=== PATIENT | male | born 1955 | race Caucasian/White ===

== ENCOUNTER → 2019-10-12 | Outpatient (CLI) | payer BC ==
--- NOTE | 2019-10-13 03:25 | MR ---
EXAMINATION TYPE: MR knee RT wo con DATE OF EXAM: 10/12/2019 COMPARISON: 10/14/2011 HISTORY: Chronic rt knee pain; Prior MR on pacs 2010 TECHNIQUE: Multiplanar, multisequence imaging of the right knee is performed without IV contrast. FINDINGS: There is significant increased signal in the posterior cruciate ligament. There is apparent complete tear of the anterior cruciate ligament. There is moderate knee joint effusion. There is complex and o rbital cyst that measures 3.7 x 1.6 cm. There is moderate spurring at the patellofemoral joint. There is narrowing of the medial and lateral joint spaces. There is significant thinning and displacement of the entire medial meniscus. There is extensive increased signal in the anterior and posterior horn s of the medial meniscus at the free margins. There is thinning of the articular cartilage in the med ial and lateral joint space. There is irregular increased signal in the anterior horn lateral meniscu s. There is similar irregular increased signal in the posterior horn lateral meniscus extending to th e inferior surface. There is minimal lateral tibial subluxation. The collateral ligaments appear inta ct. There is significant osteophyte formation and spurring involving the medial and lateral femoral a nd tibial condyles. IMPRESSION: There is complete tear anterior and posterior cruciate ligaments. Extensive osteoarthritis with joint space narrowing and spur formation. Extensive tears and degenerat keny changes in the medial and lateral menisci. Knee joint effusion with complex popliteal cyst that could relate to debris and/or developing synovia l chondromatosis.
== END | disposition home or self-care (01) ==
LOC: RADMRIMAIN 19:17
PROVIDERS: ATTEND Orthopaedic Surgery
DX: M17.11 Unilateral primary osteoarthritis, right knee (principal); S83.511A Sprain of anterior cruciate ligament of right knee, initial encounter; S83.521A Sprain of posterior cruciate ligament of right knee, initial encounter; M25.861 Other specified joint disorders, right knee; S83.281A Other tear of lateral meniscus, current injury, right knee, initial encounter; S83.241A Other tear of medial meniscus, current injury, right knee, initial encounter; M71.21 Synovial cyst of popliteal space [Baker], right knee

== ENCOUNTER → 2019-10-19 | Outpatient (CLI) | payer BC | END | disposition home or self-care (01) | LOC: LABWHC1 15:03 | PROVIDERS: ATTEND Orthopaedic Surgery | DX: Z01.812 Encounter for preprocedural laboratory examination (principal) | CPT/HCPCS: 87070 ==

== ENCOUNTER → 2019-11-07 | Outpatient (CLI) | payer BC ==
--- NOTE | 2019-11-07 22:45 | MR ---
EXAMINATION TYPE: MR knee LT wo con DATE OF EXAM: 11/07/2019 COMPARISON: NONE HISTORY: Left knee pain, however pain for 3 months per patient. TECHNIQUE: Multiplanar, multisequence images of the knee is performed without IV contrast. FINDINGS: MEDIAL MENISCUS: Medial meniscus is abnormal with truncated appearance and abnormal signal, findings most prominent involving the posterior horn. Displaced medial fragment fell present on coronal images LATERAL MENISCUS: Abnormal signal through anterior and posterior horn including central body is ident ified predominantly horizontal component extends to the peripheral surface of the anterior horn. CRUCIATE LIGAMENTS: The anterior and posterior cruciate ligaments are intact and unremarkable. COLLATERAL LIGAMENTS: The medial collateral ligament and lateral collateral ligament complex are inta ct. Mass effect with medial protrusion of the medial collateral ligament noted. EXTENSOR MECHANISM: Visualized quadriceps and patellar tendons are intact. EFFUSION: Moderate size suprapatellar joint effusion. POPLITEAL CYST: Large multi septated popliteal/redding cyst measuring over 10 cm long axis sagittal keri ge 25. TRICOMPARTMENT SPACES: Moderate tricompartment joint space loss with mild to moderate tricompartment spurring CARTILAGE: Some chondromalacia patella with thinning of articular cartilage along posterior patellar pole particularly superiorly. Full-thickness cartilaginous loss medial tibial femoral compartment is present. BONE MARROW SIGNAL: Areas of reactive diminished T1 and slight T2 hyperintense signal medial tibial f emoral compartment at site of full-thickness cartilaginous loss. OTHER: No additional significant abnormality is appreciated. IMPRESSION: 1. Moderate to advanced degenerative changes most prominent medial tibial femoral compartment as deta iled above. 2. Full-thickness tear involving anterior and posterior horns of medial meniscus most prominent throu gh the posterior horn. 3. At least intrasubstance suspected full-thickness tear involving anterior and posterior horn of lat eral meniscus. 4. Large multiseptated popliteal cyst. 5. Moderate-sized suprapatellar joint effusion.
== END | disposition home or self-care (01) ==
LOC: RADMRIMAIN 18:49
PROVIDERS: ATTEND Orthopaedic Surgery
DX: M17.12 Unilateral primary osteoarthritis, left knee (principal); S83.232A Complex tear of medial meniscus, current injury, left knee, initial encounter

== ENCOUNTER 2019-11-28 05:57 | Day surgery (SDC) | payer BC ==
[2019-11-24 10:58] VITALS: BMI 38.0
--- NOTE | 2019-11-27 11:17 | HP ---
HISTORY AND PHYSICAL DATE OF SURGERY: 11/28/2019 Sergio Ramsey is a 64-year-old patient seen with symptomatic right knee osteoarthritis. We discussed options for treatment. He elected to proceed with right total knee arthroplasty. Consent was obtained. Medical clearance was provided by Dr. Luis Garnica. PAST MEDICAL HISTORY: Hypertension. PAST SURGICAL HISTORY: Right knee arthroscopy. DAILY MEDICATIONS: Antihypertensive. ALLERGIES: None. SOCIAL HISTORY: Denies tobacco use. PHYSICAL EXAMINATION: Evaluation of the right knee: His range of motion is 0-130. There is a mild to moderate effusion. Tenderness along the medial joint line. Crepitus along the medial patellofemoral compartments on range of motion. Pain with patellofemoral compression. Ligaments are stable. Hip rotation is without pain. Distal neurovascular exam is intact. Right knee radiographs reveal severe medial moderate patellofemoral compartment osteoarthritis. IMPRESSION: 1. Right knee osteoarthritis. 2. Hypertension. PLAN: Right total knee arthroplasty. MMODL / IJN: [id number] /
[~2019-11-28 05:57] MED LIST: ACETAMINOPHEN TAB 500 MG TAB PO ONE; DEXAMETHASONE SOD PHOSPHATE 10 MG/ML 1 ML VIAL IV ONE; LIDOCAINE 1% 20 ML VIAL (10MG/ML) FOR IV START INTRADERMA PRN; MELOXICAM 7.5 MG TAB PO ONE; MIDAZOLAM 2 MG/2 ML VIAL IV PRN; TRANEXAMIC ACID 1,000 MG in SODIUM CHLORIDE 0.9% 100 ML IVPB ONE; ceFAZolin 3 GM in SODIUM CHLORIDE 0.9% 100 ML IVPB ONE; fentaNYL (PF) 50 MCG/ML 2 ML AMP IV PRN; fentaNYL (PF) 50 MCG/ML 2 ML AMP IVP PRN
[2019-11-28] MEDS: LACTATED RINGERS 1,000 ML IV SCH ×5 (06:26→20:37)
[2019-11-28] MEDS ORDERED: DEXAMETHASONE SOD PHOSPHATE 10 MG/ML 1 ML VIAL IV ONE (06:32)
[2019-11-28] MEDS ORDERED: ONDANSETRON 4 MG/2 ML VIAL IVP ONE (06:32)
[2019-11-28] MEDS ORDERED: ROPIVACAINE 0.2%-NS ON-Q PUMP 1,090 MG, EMPTY PAIN BALL 1 EACH MISCELLANE PRN (06:58)
--- NOTE | 2019-11-28 07:01 | P.ANPRN ---
Procedure Note - Anesthesia - Nerve Block Performed Right Adductor Canal Infusion Time Out Performed: Yes Date of Procedure: 11/28/19 Procedure Start Time: 06:40 Procedure Stop Time: 06:50 Location of Patient: PreOp Indication: Acute Post-Operative Pain, Requested by Surgeon Specifically requested for management of pain by DrAshlyn: Figueroa Anaya Sedation Type: Sedate with meaningful contact maintained Preparation: Sterile Prep Position: Supine Catheter Depth at Skin (cm): 8 Catheter: Indwelling Needle Types: Pajunk Needle Gauge: 18 Ultrasound used to visualize needle placement: Yes Ultrasound used to observe medication spread: Yes Injectate: 0.5% Ropivacaine (see comment for volume) (20 cc) Blood Aspirated: No Pain Paresthesia on Injection Noted: No Resistance on Injection: Normal Image Stored and Saved: Yes Events: Uneventful and Well Tolerated
[2019-11-28] MEDS ORDERED: TRANEXAMIC ACID 1,000 MG/10 ML VIAL ONE (07:27)
[2019-11-28] MEDS ORDERED: SODIUM CHLORIDE 0.9% 100 ML BAG ONE (07:27)
[2019-11-28] MEDS ORDERED: PROPOFOL 10 MG/ML 20 ML VIAL IV ONE (07:27)
[2019-11-28] MEDS ORDERED: ceFAZolin 3,000 MG in SODIUM CHLORIDE 0.9% IRRIGATIO 3,000 ML IRRIGATION ONE (07:27)
[2019-11-28] MEDS ORDERED: MIDAZOLAM 2 MG/2 ML VIAL ONE (07:27)
[2019-11-28] MEDS: ROPIVACAINE 246.25 MG, EPINEPHrine 0.5 MG, KETOROLAC 30 MG, cloNIDine HCL/PF 80 MCG, WA... MISCELLANE ONE ×10 (07:55→08:27)
[2019-11-28] MEDS ORDERED: LACTATED RINGERS 1,000 ML IV ONE (09:00)
[2019-11-28] MEDS ORDERED: NALOXONE 0.4 MG/ML 1 ML VIAL IV PRN (09:15)
[2019-11-28] MEDS ORDERED: ONDANSETRON 4 MG/2 ML VIAL IVP PRN (09:15)
[2019-11-28] MEDS ORDERED: HYDROcodone/APAP 5-325MG 1 EACH TAB PO PRN (09:15)
[2019-11-28] MEDS ORDERED: HYDROmorphone 0.5 MG/0.5 ML SYRINGE IVP PRN ×2 (09:15)
[2019-11-28] MEDS ORDERED: traMADol 50 MG TAB PO PRN (09:15)
[2019-11-28] MEDS ORDERED: HYDROmorphone 1 MG/ML 1 ML SYRINGE IVP PRN (09:15)
--- NOTE | 2019-11-28 09:15 | P.OP ---
Date of Procedure: 11/28/19 Preoperative Diagnosis: Right knee osteoarthritis Postoperative Diagnosis: Right knee osteoarthritis Procedure(s) Performed: Right total knee arthroplasty Implants: 1. Depuy attune size 8 right cruciate retaining cemented femur 2. Depuy attune size 8 fixed bearing cemented tibial baseplate 3. Depuy attune size 8 fixed bearing 5 mm polyethylene tibial insert 4. Depuy attune 41 mm all polyethylene cemented patella Anesthesia: regional (Adductor canal catheter), local, spinal Surgeon: Figueroa Anaya Shoelace Tipping Machine Operator #1: Flip Thorne Estimated Blood Loss (ml): 35 Pathology: other (Bone) Condition: stable Disposition: PACU Indications for Procedure: 64-year-old patient seen with symptomatic right knee osteoarthritis. After treatment options were discussed, he elected to proceed with total knee arthroplasty. Operative Findings: See description of procedure Description of Procedure: Patient was taken to the operative suite after having an adductor canal catheter placed by the department of anesthesia for postoperative pain management. Patient underwent a spinal anesthetic by the department of anesthesia. Patient was given preoperative IV intake antibiotics and TXA. A well-padded tourniquet was placed about the right lower extremity. The lower extremity was then prepped and draped in the normal sterile orthopedic fashion. The extremity was elevated, a tourniquet was insufflated to 300. A standard anterior incision was made sharply through skin. Dissection was taken down through the subcutaneous soft tissues down to the extensor mechanism. A medial arthrotomy was performed, patella was everted and knee was flexed. There was advanced osteoarthritis noted. I introduced my distal intramedullary femoral drill. I then introduced the distal femoral cutting jig. Dev RIVAS secured the cutting jig with 2 pins. I held retractors in position while Dev RIVAS performed the distal femoral resection through the guide area we now removed her distal femoral cutting guide. We now placed our 4-in-1 femoral cutting block and positioned and it was secured with 2 pins by Dev RIVAS while I held the block in position. The distal femoral finishing was now completed. A proximal tibial cutting guide was positioned. I held the guide in the appropriate position with both hands well Dev RIVAS inserted stabilizing pins into the guide. Proximal tibial cut was made. We now placed a trial femoral component into position, along with an appropriate size tibial tray and insert. We now took the knee through range of motion and had full extension good flexion and good overall soft tissue balance noted. The patella was everted and stabilized with 2 towel clips held by Dev RIVAS while I performed a flush with patellar quad tendon utilizing a fresh sawblade. We templated the patella, appropriate drill holes were made. An appropriate trial patella was positioned, knee was taken through full range of motion with the patella tracking very nicely. The trial patella was removed. Drill holes were made through the femoral component. All trial components were removed after marking off the appropriate rotation of the tibia. Retractors were now positioned along the proximal tibia. An appropriate keel punch was made with the appropriate size tibial guide by myself on Dev RIVAS assisted by holding retractors. At this point appropriate size implants were chosen and opened. The joint was irrigated copiously with pulse lavage mechanical irrigation. The posterior capsule was infiltrated with local analgesic. The wound was irrigated with pulse lavage mechanical irrigation. We mixed antibiotic methylmethacrylate. We placed the knee into flexion. We placed multiple retractors assisted by Dev RIVAS to expose the proximal tibia. Once the methyl methacrylate was ready, the tibial component was cemented into place removing any excess methylmethacrylate form by both myself and Dev RIVAS. The femoral component was cemented into place removing the removing any excess methylmethacrylate performed by both myself and Dev RIVAS. We then inserted the appropriate size polyethylene tibial insert. We made sure that it was locked into position. We took the knee into full extension, and then back in a flexion making sure we had removed any excess methylmethacrylate. The patellar component was then cemented down and secured with clamp. Excess methylmethacrylate removed. We kept the knee in full extension, patellar clamp in position until methylmethacrylate had hardened. Once it had hardened the patellar clamp was removed. The knee was taken through full range of motion. The patella tracked nicely. There was good soft tissue balancing. The tourniquet was now released. Additional hemostasis was achieved via electrocautery. A second gram of TXA was given. The wound again was irrigated with pulse lavage mechanical irrigation. The superficial soft tissues were infiltrated local analgesic. The extensor mechanism was repaired with Vicryl. We checked the repair with range of motion and it was stable. The subcutaneous soft tissues were repaired with Vicryl in layers. The skin was approximated with pernio/Dermabond. Sterile dressings were applied followed by loose web roll and Chidi bandage. The patient was transferred to a bed, and taken to recovery in stable and satisfactory condition. Dev RIVAS assisted with this complex procedure.
--- NOTE | 2019-11-28 10:13 | XR ---
EXAMINATION TYPE: XR knee limited RT DATE OF EXAM: 11/28/2019 COMPARISON: NONE HISTORY: 64-year-old male evaluation for postoperative abnormality and alignment TECHNIQUE: 2 views FINDINGS: Images show placement of right total knee arthroplasty. Both distal femoral and proximal ti bial components of the prosthesis are well seated without periprosthetic fracture. Alignment grossly anatomic. Extensor mechanism intact. Anterior soft tissue swelling with soft tissue air as well as in tra-articular air compatible with recent operation. IMPRESSION: Uncomplicated postoperative appearance right total knee arthroplasty.
[2019-11-28] MEDS: HYDROcodone/APAP 5-325MG 1 EACH TAB PO PRN ×2 (14:41→21:43)
[2019-11-28] MEDS: ceFAZolin 3 GM in SODIUM CHLORIDE 0.9% 100 ML IVPB SCH (14:42)
[2019-11-28] MEDS: amLODIPine 5 MG TAB PO SCH (20:38)
[2019-11-28] MEDS: ENOXAPARIN 30 MG/0.3 ML SYRINGE SQ SCH (20:38)
[2019-11-28] MEDS ORDERED: SENNOSIDES-DOCUSATE SODIUM 1 EACH TAB PO SCH (21:00)
[2019-11-28] MEDS ORDERED: CALCIUM CARBONATE 500 MG CHEWABLE PO PRN (22:32)
[2019-11-29] MEDS: ceFAZolin 3 GM in SODIUM CHLORIDE 0.9% 100 ML IVPB SCH (00:16)
[2019-11-29] MEDS: HYDROcodone/APAP 5-325MG 1 EACH TAB PO PRN (04:46)
[2019-11-29] MEDS: LACTATED RINGERS 1,000 ML IV SCH (05:55)
[2019-11-29 07:52] VITALS: BP 150/86; PULSE 78; RESP 16; TEMP 98.4
[2019-11-29 07:53] LABS: Basophils # (A) 0.1 k/uL (0-0.2); Basophils % (A) 1 %; Eosinophils % (A) 0 %; HCT 34.5 % (39.0-53.0); HGB 11.6 gm/dL (13.0-17.5); Lymphocytes # (A) 1.3 k/uL (1.0-4.8); Lymphocytes % (A) 12 %; MCHC 33.8 g/dL (31.0-37.0); MCV 91.9 fL (80.0-100.0); Mean Platelet Volume 7.6; Monocytes % (A) 10 %; Neutrophils % (A) 76 %; Platelet Count 215 k/uL (150-450); RBC 3.75 m/uL (4.30-5.90); RDW 11.8 % (11.5-15.5); WBC 10.5 k/uL (3.8-10.6)
--- NOTE | 2019-11-29 08:06 | P.PN ---
Progress Note - Text Anesthesia POD 1 724. Patient is status post right TKR under spinal anesthesia with a right adductor canal catheter placed for postoperative pain relief. With ropivacaine 0.2% running at 8 cc's per hour, the patient's VAS is (0, 2). Catheter site is clean dry and intact.
[2019-11-29] MEDS: amLODIPine 5 MG TAB PO SCH (08:23)
[2019-11-29] MEDS: ENOXAPARIN 30 MG/0.3 ML SYRINGE SQ SCH (08:24)
[2019-11-29] MEDS ORDERED: MELOXICAM 7.5 MG TAB PO SCH (09:00)
[2019-11-29] MEDS ORDERED: PANTOPRAZOLE 40 MG/10 ML VIAL IVP SCH (10:30)
--- NOTE | 2019-11-29 12:47 | P.PN ---
Subjective Progress Note Date: 11/29/19 Principal diagnosis: s/p right tka Patient evaluated at bedside, he is resting comfortably. Pain is well- controlled. He has done well with physical therapy Denies any chest pain or shortness of breath. Patient is requesting a hospital bed along with a elevated toilet seat due to his low toilets and bedroom being up a flight of stairs, a prescription was placed for this. Objective - Vital Signs Vital signs: Vital Signs Temp 98.4 F 11/29/19 07:10 Pulse 78 11/29/19 07:10 Resp 16 11/29/19 07:10 BP 150/86 11/29/19 07:10 Pulse Ox 97 11/29/19 07:10 Intake & Output 11/28/19 11/29/19 11/29/19 18:59 06:59 18:59 Intake Total 1697 Output Total 35 Balance 1662 Weight 131 kg Intake: IV 1401 Oral 296 Output: Estimated Blood Loss 35 Other: Voiding Method Toilet # Voids 2 1 - Exam Right lower extremity: Incision is clean, dry, and intact. The exofin fusion tape is in good condition. There is minimal soft tissue swelling and ecchymosis surrounding the medial and lateral aspects of the incision. Calf is soft, no tenderness with palpation. Plantar flexion, dorsiflexion, EHL, FHL are intact. Sensory exam to light touch throughout the extremity is intact, dorsal pedis pulses 2+. - Labs CBC & Chem 7: 11/29/19 07:01 Labs: Abnormal Lab Results - Last 24 Hours (Table) 11/29/19 Range/Units 07:01 RBC 3.75 L (4.30-5.90) m/uL Hgb 11.6 L (13.0-17.5) gm/dL Hct 34.5 L (39.0-53.0) % Neutrophils # 8.0 H (1.3-7.7) k/uL Assessment and Plan Plan: Assessment: Postop day #1 status post right total knee arthroplasty Plan: Pain control, discharged on oral medication GI and DVT prophylaxis, aspirin 81 mg twice a day of discharge Wound care instructions discussed Icing and elevating techniques discussed Therapy and nursing after discharge Plan for discharge home today Time with Patient: Less than 30
--- NOTE | 2019-11-29 12:51 | P.DS ---
Providers Date of admission: 11/28/2019 Expected date of discharge: 11/29/19 Attending physician: Figueroa Man Consults: 11/28/19 09:15 Consult Physician Routine Consulting Provider: Luis Garnica Reason/Comments: Medical management Do you want consulting provider notified?: Yes Primary care physician: Luis Garnica [facility] Course: Date of admission: 11/28/2019 Date of discharge: 11/29/2019 Admission diagnosis: Status post right total knee arthroplasty Discharge diagnosis: Same Attending physician: Dr. man Surgical procedures: Right total knee arthroplasty Brief history: Patient is a 64-year-old male with a history of progressive primary right knee osteoarthritis. At this point patient has failed conservative treatment measures and has opted to proceed with a elective right total knee arthroplasty. Hospital course: Details of patient's surgery can be found in operative report. Patient tolerated the procedure well and was subsequently transported to orthopedic floor. Patient's orthopeidc and medical care was provided daily. Patient had daily laboratory tests performed for evaluation of overall blood counts. Patient had daily physical therapy to include strengthening range of motion as well as education with walker ambulation. Patient had daily CPM usage as part of their physical therapy program. Patient was treated with Lovenox for their postoperative DVT prophylaxis during their inpatient stay. Patient was noted to have a relatively uneventful postoperative course. Patient reported satisfactory pain control with oral pain medications by postoperative day 0. Patient showed satisfactory progress with physical therapy. Patient moved steadily through the program and had no difficulty meeting the goals by postoperative day 1. Given patient's otherwise satisfactory course and having met physical therapy goals, plan is to discharge patient home on postoperative day 1. Discharge condition/disposition: Patient will be discharged home in stable condition. Discharge medications: Instructions are given on resumption of patient's normal daily medications per primary care recommendation, in addition patient will be prescribed [place] 7.5 mg/325 mg, tramadol 50 mg, Colace 100 mg, aspirin 81 mg. Discharge instructions: 1. Wound care and infection precautions, keep incision dry and covered while showering, no lotions, creams, moisturizers. No soaking, tubs, pools, hottubs. Do not scrub over the incision. 2. Weight-bear as tolerated with walker / cane until follow-up. 3. Ice and elevate when necessary. Do not exceed 20 minutes per hour with ice pack. 4. Utilize compression sleeve until seen at first follow up appointment. 5. Visiting nursing care. 6. Home physical therapy including home CPM. 7. Pain meds and anticoagulants per prescription. 8. Pain medication has potential to cause constipation. Increase oral fluid and fiber intake. Contact primary care provider if you have not had a bowel movement within 48 hours after discharge 9. No anti-inflammatory medication until discussed at first post operative visit, this including Motrin, Aleve, Mobic, Diclofenac. 10. Follow up in office at 2 weeks postop with Dev Thorne PA-C 11. Follow up with your primary care doctor 7-10 days after discharge. 12. Contact [facility] with any questions, . Procedures: right total knee arthroplasty Patient Condition at Discharge: Good Plan - Discharge Summary Discharge Rx Participant: Yes New Discharge Prescriptions: New Aspirin [Adult Low Dose Aspirin EC] 81 mg PO BID #60 tablet. Docjavedte [Colace] 100 mg PO DAILY #30 capsule HYDROcodone/APAP 7.5-325MG [[place] 7.5] 1 - 2 each PO Q6HR PRN #56 tab PRN Reason: Pain traMADol HCl [Ultram] 50 mg PO Q6H PRN #28 tab PRN Reason: Pain No Action amLODIPine [Norvasc] 5 mg PO QAM Ibuprofen [Motrin] 800 mg PO Q6H PRN PRN Reason: Pain Acetaminophen [Tylenol Extra Strength] 1,000 mg PO ONCE Discharge Medication List Ibuprofen [Motrin] 800 mg PO Q6H PRN 11/24/19 [History] amLODIPine [Norvasc] 5 mg PO QAM 11/24/19 [History] Acetaminophen [Tylenol Extra Strength] 1,000 mg PO ONCE 11/28/19 [History] Aspirin [Adult Low Dose Aspirin EC] 81 mg PO BID #60 tablet. 11/29/19 [Rx] Docusate [Colace] 100 mg PO DAILY #30 capsule 11/29/19 [Rx] HYDROcodone/APAP 7.5-325MG [[place] 7.5] 1 - 2 each PO Q6HR PRN #56 tab 11/29/19 [Rx] traMADol HCl [Ultram] 50 mg PO Q6H PRN #28 tab 11/29/19 [Rx] Follow up Appointment(s)/Referral(s): Luis Garnica DO [Primary Care Provider] - 1 Week [facility],Equipment [NON-STAFF] - [facility], [NON-STAFF] - Flip Thorne PAC [PHYSICIAN FEEDER ASSOCIATE] - 12/14/19 2:10 pm Activity/Diet/Wound Care/Special Instructions: *Please call [facility] once home to arrange delivery of Continuous Passive Motion (CPM) machine, hospital bed, and toilet raiser - [phone] Orthopedic Discharge Instructions: 1. Wound care and infection precautions, keep incision dry and covered while showering, no lotions, creams, moisturizers. No soaking, pools, hot tubs. Do not scrub over incision. 2. Weight-bear as tolerated with walker / cane until follow-up. 3. Ice and elevate when necessary. Do not exceed 20 minutes per hour with ice pack. 4. Utilize compression sleeve until seen at first follow up appointment. 5. Pain meds and anticoagulants per prescription. 6. Pain medication has potential to cause constipation. Increase oral fluid and fiber intake. Contact primary care provider if you have not had a bowel movement within 48 hours after discharge. 7. No anti-inflammatory medication until discussed at first post operative visit, this including Motrin, Aleve, Mobic, Diclofenac. 8. Follow up in office at 2 weeks postop with Dev Thorne PA-C 9. Follow up with your primary care doctor 7-10 days after discharge. 10. Contact [facility] with any questions, . Discharge Disposition: HOME WITH HOME HEALTH SERVICES
--- NOTE | 2019-11-29 16:36 | P.CONS ---
History of Present Illness - Reason for Consult Consult date: 11/29/19 Medical management hypertension Requesting physician: Figueroa Anaya - Chief Complaint Progressive right knee osteoarthritis - History of Present Illness This is a pleasant 64-year-old gentleman with history of progressive right knee osteoarthritis, hypertension, obesity. Status post elective right total knee arthroplasty, failed conservative management. Tolerated procedure well. Ambulating, tolerating exertion well. Denies lightheadedness, dizziness or focal deficits. Good diet intake with no nausea or vomiting, passing flatus. Systolic blood pressures 150s and 60s and Norvasc added to med regime. Denies chest pain, palpitations or shortness of breath. Afebrile, normal WBC. Hemoglobin 11.6. Review of Systems Constitutional: Denied any fatigue denied any fever. Cardio vascular: denied any chest pain, palpitations Gastrointestinal denied any nausea vomiting Pulmonary: Denied any shortness of breath cough Neurologic denied any new focal deficits ROS Statement: Those systems with pertinent positive or pertinent negative responses have been documented in the HPI. ROS Other: All systems not noted in ROS Statement are negative. Past Medical History Past Medical History: Hypertension History of Any Multi-Drug Resistant Organisms: None Reported Past Surgical History: Appendectomy, Orthopedic Surgery, Tonsillectomy Additional Past Surgical History / Comment(s): rt knee scope x2 Past Anesthesia/Blood Transfusion Reactions: No Reported Reaction Past Psychological History: No Psychological Hx Reported Smoking Status: Never smoker Past Alcohol Use History: Rare Past Drug Use History: None Reported Medications and Allergies Home Medications Medication Instructions Recorded Confirmed Type Ibuprofen [Motrin] 800 mg PO Q6H PRN 11/24/19 11/28/19 History amLODIPine [Norvasc] 5 mg PO QAM 11/24/19 11/28/19 History Acetaminophen [Tylenol Extra 1,000 mg PO ONCE 11/28/19 11/28/19 History Strength] Aspirin [Adult Low Dose Aspirin EC] 81 mg PO BID #60 tablet. 11/29/19 Rx Docusate [Colace] 100 mg PO DAILY #30 capsule 11/29/19 Rx HYDROcodone/APAP 7.5-325MG [[place] 1 - 2 each PO Q6HR PRN #56 tab 11/29/19 Rx 7.5] traMADol HCl [Ultram] 50 mg PO Q6H PRN #28 tab 11/29/19 Rx Allergies Allergy/AdvReac Type Severity Reaction Status Date / Time No Known Allergies Allergy Verified 11/24/19 10:53 Physical Exam Vitals: Vital Signs Temp Pulse Pulse Resp BP Pulse Ox 11/29/19 07:10 98.4 F 78 16 150/86 97 11/29/19 02:39 97.7 F 81 18 134/67 97 11/28/19 19:33 16 11/28/19 18:32 97.8 F 80 16 142/79 93 L 11/28/19 14:16 98 F 82 16 133/79 93 L 11/28/19 12:45 87 146/78 11/28/19 12:30 77 148/80 11/28/19 12:15 81 151/81 11/28/19 12:00 81 146/84 11/28/19 11:45 76 139/78 11/28/19 11:30 84 156/83 11/28/19 11:15 82 164/82 11/28/19 11:00 81 157/79 11/28/19 10:45 81 159/87 11/28/19 10:30 97.6 F 87 16 166/78 92 L Intake and Output 11/28/19 11/29/19 11/29/19 22:59 06:59 14:59 Intake Total 296 Balance 296 Intake: Oral 296 Other: Voiding Method Toilet # Voids 2 1 PHYSICAL EXAM: VITAL SIGNS: [As above] GENERAL: Sitting up in bed, no acute distress HEENT: Conjunctivae normal. eyes normal. Oral mucosa moist NECK: No JVD. No thyroid enlargement. No LNs CARDIOVASCULAR: S1, S2 regular. No murmur RESPIRATION: Breath sounds diminished in the bases. No rhonchi or crackles. No bronchial breathing. ABDOMEN: Soft, nontender, nondistended .no masses palpable. No guarding.Bowel sounds heard. LEGS: Minimal edema/ecchymosis. Dressing clean dry and intact. +2 DP PSYCHIATRY: Alert and oriented X3, mood and affect normal. NERVOUS SYSTEM: Cranial N 2-12 grossly normal. Moves all 4 limbs.No focal deficits. Strength and sensation grossly intact.. Skin: no rash Results CBC & Chem 7: 11/29/19 07:01 Labs: Abnormal Lab Results - Last 24 Hours (Table) 11/29/19 Range/Units 07:01 RBC 3.75 L (4.30-5.90) m/uL Hgb 11.6 L (13.0-17.5) gm/dL Hct 34.5 L (39.0-53.0) % Neutrophils # 8.0 H (1.3-7.7) k/uL Assessment and Plan Assessment: Right total knee arthroplasty secondary to progressive primary right knee osteoarthritis, failed conservative treatment. Hypertension Obesity Plan: Continue on current medication regime ,monitoring and symptomatic treatment. PT. Pain management/DVT prophylaxis as per surgery. Aggressive pulmonary toileting with incentive spirometer reinforced. Close monitoring of blood pressure, Norvasc added to med regimen. Discharge planning in progress for today as per orthopedic surgery. Follow up with Dr. Garnica in 1 week. Thank you for allowing us to participate in the care of this pleasant gentleman. The impression and plan of care has been dictated as directed. : I performed a history and examination of this patient, discussed the same with the dictator. I agree with the dictator's note ,documented as a scribe. Any additional findings or plans will be noted.
== END 2019-11-29 14:37 | disposition home health service (06) ==
LOC: OR 05:57 → 4SSUR 09:04 → OR 11-29 14:37
PROVIDERS: ATTEND Orthopaedic Surgery
DX: M17.11 Unilateral primary osteoarthritis, right knee (principal); I10 Essential (primary) hypertension; E66.9 Obesity, unspecified; Z90.49 Acquired absence of other specified parts of digestive tract; Z90.89 Acquired absence of other organs; Z79.891 Long term (current) use of opiate analgesic; Z79.899 Other long term (current) drug therapy; Z68.39 Body mass index [BMI] 39.0-39.9, adult
CPT/HCPCS: 97116; 97110; 97161; 64448; 76942; 85025; 88300; 73560; 27447; C1776; C1713; J2250; J0171; J1100; J0690 ×3; J2405; J3010; J1885; J1650 ×2; J2795 ×2; J0735; C9113

== ENCOUNTER → 2022-11-19 | Outpatient (CLI) | payer BC | END | disposition home or self-care (01) | LOC: LABPAT 16:27 | PROVIDERS: ATTEND Orthopaedic Surgery | DX: Z01.812 Encounter for preprocedural laboratory examination (principal); Z22.322 Carrier or suspected carrier of Methicillin resistant Staphylococcus aureus; M17.12 Unilateral primary osteoarthritis, left knee | CPT/HCPCS: 87070 ==